=== PATIENT | male | born 1995 | race Caucasian/White ===

== ENCOUNTER 2018-03-20 16:44 | Emergency (ER) | payer OTHER ==
[~2018-03-20] VITALS: Ht 167.6 cm; Wt 67.1 kg
[~2018-03-20 16:44] MED LIST: AZITHROMYCIN500 MG PO; MEDROL4 MG PO; OSEL75CA PO; TUSICOF LIQUID120 ML PO; TUSSI-PRES LIQ120 ML PO; XOPENEX HFA15 GM IH
== END 2018-03-20 20:13 | disposition home or self-care (01) ==
LOC: ER 16:44
DX: S50.01XA Contusion of right elbow, initial encounter (principal); W18.39XA Other fall on same level, initial encounter; Y93.67 Activity, basketball; Y92.39 Other specified sports and athletic area as the place of occurrence of the external cause; Y99.8 Other external cause status